=== PATIENT | male | born 1990 | race Caucasian/White ===

== ENCOUNTER 2025-01-13 07:13 | Day surgery (SDC) | payer OTHER ==
[2025-01-13] MEDS ORDERED: MARCAINE 0.25% PF/ EPI 1:200,000 IJ ONE (07:14)
[2025-01-13] MEDS: Lactated Ringers 1,000 ML IV SCH (07:23)
[2025-01-13] MEDS: CEFAZOLIN 2 GM/100 ML NaCl 2 GM/100 ML IVPB IV SCH (07:23)
[2025-01-13] MEDS: TYLENOL EXTRA STRENGTH 500 MG PO ONE (07:24)
[2025-01-13] MEDS: celeBREX 100 MG PO ONE (07:24)
[2025-01-13] MEDS: NEURONTIN PO ONE (07:24)
[2025-01-13] MEDS: Decadron 4 MG PO ONE (07:25)
[2025-01-13 07:41] LABS: Hematocrit 44.9 % (40.1-51.0); Hemoglobin 15.4 g/dL (13.7-17.5); Mean Cell Volume 90.9 fL (79.0-92.2); Mean Corpuscular Hemoglobin 31.2 pg (25.7-32.2); Mean Corpuscular Hgb Concent. 34.3 g/dL (32.3-36.5); Mean Platelet Volume 9.4 fL (9.4-12.4); Platelet Count 343 x10^3/uL (163-337); Red Blood Count 4.94 x10^6/uL (4.63-6.08); Red Cell Distribution Width 11.2 % (11.6-14.4); White Blood Count 5.9 x10^3/uL (4.23-9.07)
[2025-01-13 07:56] VITALS: RESP 16
--- NOTE | 2025-01-13 08:39 | XRAY ---
Indication: Preop exam. Comparison: None Portable chest demonstrates minimal right midlung discoid atelectasis/scarring. Remaining heart, lungs, and bony thorax normal. No acute findings.
[2025-01-13] MEDS ORDERED: Xylocaine-Mpf 2% 5 Ml Vial ONE (09:32)
[2025-01-13] MEDS ORDERED: SUBLIMAZE 100 MCG/2 ML ONE (09:32)
[2025-01-13] MEDS ORDERED: propofoL IV ONE ×2 (09:33→10:27)
[2025-01-13] MEDS ORDERED: Zofran 4 MG/2 ML VIAL ONE (10:49)
[2025-01-13] MEDS ORDERED: DEXMEDETOMIDINE 80 MCG/20ML-NS IV ONE (11:03)
[2025-01-13 12:18] VITALS: TEMP 97
[2025-01-13 12:44] VITALS: BP 144/89; PULSE 70; O2SAT 99
--- NOTE | 2025-01-14 12:37 | OP ---
SURGERY DATE/TIME: 01/13/2025 [id number] PREOPERATIVE DIAGNOSIS: Bucket-handle tear medial meniscus, left knee. POSTOPERATIVE DIAGNOSIS: Bucket-handle tear medial meniscus, left knee. PROCEDURE: Arthroscopy of the left knee with partial medial meniscectomy. SURGEON: Jay De La Vega II, DO. ANESTHESIA: General. DESCRIPTION OF PROCEDURE AND FINDINGS: The patient was identified and informed consent was obtained. The patient was taken to the operative suite and placed into the supine position on the operating table, where the general anesthetic was administered. Once an appropriate level of anesthesia had been obtained, a tourniquet was placed high on the left thigh. The left lower extremity was then placed into the knee herndon, prepped and draped in the usual sterile fashion. A standard time-out was taken. The leg was then exsanguinated and the tourniquet elevated to 350 mmHg. A standard superomedial portal was created with an 11 blade. Trocar and cannula were placed in the joint. The joint was distended with the arthroscopic pump. An inferolateral portal was created with an 11 blade, and the arthroscope was then placed in through a cannula. An 18-gauge spinal needle identified the level for the inferomedial portal, and this was also created with the #11 blade. The knee was inspected in a systematic fashion beginning in the suprapatellar pouch where there were no loose bodies. There was some mild reactive synovitis which was shaved with the full-radius shaver. At this point, the scope was then placed into the medial compartment where a bucket-handle tear which was flipped into the middle of the joint was noted. The tear was reduced. A good portion of it appeared to be in the white zone. The rest of it was in kind of a red-white zone, but given the patient's age and the condition of the meniscus, it was felt that it was best to be resected. Posterior limb was then resected followed by resection of the anterior portion. It was then grasped and removed. The edges were contoured with handheld biting instruments and shaved to a smooth transition. Femoral condyle and tibial plateau were noted to be intact without chondromalacia. The intercondylar notch region was inspected. The patient's anterior cruciate ligament had a good end point, but it was noted to have some significant laxity and about a grade 1 to grade 1.5 drawer test was noted. At this point, the scope was placed in the lateral compartment where the lateral meniscus was probed throughout its entirety and noted to be intact without evidence of flouncing or tears. The knee was then reinspected and copiously irrigated. The instrumentation was removed, and portal sites were then closed with interrupted 4-0 nylon suture. The knee was infiltrated with 30 mL of 0.25% Marcaine with epinephrine. Adaptics, 4 x 4's, and a standard postop arthroscopy dressing applied. The patient was then transferred to the cart and taken to the recovery room in satisfactory condition, having tolerated the procedure well.
== END 2025-01-13 12:40 | disposition home or self-care (01) ==
LOC: SDC 07:13
PROVIDERS: ATTEND Orthopaedic Surgery
DX: S83.212A Bucket-handle tear of medial meniscus, current injury, left knee, initial encounter (principal)
CPT/HCPCS: 36415; 71045; 85027; J0690; J2405; J2704; J3010; A9270-GY